=== PATIENT | male | born 1955 | race Caucasian/White ===

== ENCOUNTER → 2016-05-25 | Outpatient (CLI) | payer OTHER ==
[2015-10-07 00:37] VITALS: BP 149/76
[2016-05-25 16:28] LABS: BASOPHILS # (AUTO) 0.1 X10^3/uL (0.0-0.1); BASOPHILS % (AUTO) 0.9 % (0.2-1.0); EOSINOPHILS # (AUTO) 0.5 x10^3/uL (0.0-0.2); EOSINOPHILS % (AUTO) 4.3 % (0.9-2.9); HEMATOCRIT 34.6 % (42.0-54.0); LYMPHOCYTES # (AUTO) 3.2 X10^3/uL (1.3-2.9); LYMPHOCYTES % (AUTO) 29.6 % (21.0-51.0); MEAN CORPUSCULAR HEMOGLOBIN 29.8 pg (27.0-34.0); MEAN CORPUSCULAR HGB CONC 34.8 g/dL (33.0-35.0); MEAN CORPUSCULAR VOLUME 85.6 fL (80.0-100.0); MEAN PLATELET VOLUME 8.2 fL (7.4-11.0); MONOCYTES # (AUTO) 1.1 x10^3/uL (0.3-0.8); MONOCYTES % (AUTO) 9.9 % (0.0-13.0); NEUTROPHILS % (AUTO) 55.3 % (42.0-75.0); PLATELET COUNT 469 X10^3/uL (150.0-450.0); RED BLOOD COUNT 4.04 X10^6/uL (4.7-6.0); RED CELL DISTRIBUTION WIDTH 13.7 % (11.6-16.5); WHITE BLOOD COUNT 10.8 X10^3/uL (3.6-10.0)
[2016-05-25 16:29] LABS: BLOOD UREA NITROGEN 46 mg/dL (7-18); CALCIUM 8.6 mg/dL (8.5-10.1); CARBON DIOXIDE 26.3 mmol/L (21-32); CHLORIDE 103 mmol/L (98-107); CREATININE 3.41 mg/dL (0.70-1.30); GLUCOSE 97 mg/dL (65-99); SODIUM 141 mmol/L (136-145); eGFR BLACK RACES 24 (>60); eGFR NON BLACK RACES 20 (>60)
== END ==
LOC: LAB 15:53
PROVIDERS: ATTEND Internal Medicine
DX: R55 Syncope and collapse (principal)
CPT/HCPCS: 36415; 80048; 85025

== ENCOUNTER 2019-02-20 19:19 | Observation (INO) ==
[2019-02-20] MEDS ORDERED: NS 1000 ML 1,000 ML ONE (19:50)
[2019-02-20 20:32] VITALS: BMI 29.9
[2019-02-20] MEDS ORDERED: DESYREL PO SCH (22:00)
[2019-02-20] MEDS ORDERED: ELAVIL PO SCH (22:00)
[2019-02-20] MEDS ORDERED: FLOMAX PO SCH (22:00)
[2019-02-20] MEDS ORDERED: NS 1000 ML 1,000 ML IV SCH (22:00)
[2019-02-20] MEDS: CARAFATE PO SCH (22:57)
[2019-02-20] MEDS: PROTONIX TAB 40 MG PO SCH (22:57)
[2019-02-20] MEDS: NEURONTIN CAP 400 MG PO SCH (22:58)
[2019-02-20] MEDS: NS 1000 ML 1,000 ML IV SCH (23:00)
[2019-02-21 05:36] LABS: BASOPHILS % (AUTO) 0.4 % (0.2-1.0); EOSINOPHILS # (AUTO) 0.3 x10^3/uL (0.0-0.2); HEMATOCRIT 35.4 % (42.0-54.0); HEMOGLOBIN 12.3 g/dL (13.5-18.0); LYMPHOCYTES # (AUTO) 1.9 X10^3/uL (1.3-2.9); LYMPHOCYTES % (AUTO) 22.3 % (21.0-51.0); MEAN CORPUSCULAR HEMOGLOBIN 30.7 pg (27.0-34.0); MEAN CORPUSCULAR HGB CONC 34.9 g/dL (33.0-35.0); MEAN CORPUSCULAR VOLUME 87.9 fL (80.0-100.0); MEAN PLATELET VOLUME 8.6 fL (7.4-11.0); MONOCYTES # (AUTO) 0.7 x10^3/uL (0.3-0.8); MONOCYTES % (AUTO) 8.3 % (0.0-13.0); NEUTROPHILS # (AUTO) 5.6 x10^3/uL (2.2-4.8); PLATELET COUNT 296 X10^3/uL (150.0-450.0); RED BLOOD COUNT 4.02 X10^6/uL (4.7-6.0); RED CELL DISTRIBUTION WIDTH 13.5 % (11.6-16.5); WHITE BLOOD COUNT 8.5 X10^3/uL (3.6-10.0)
[2019-02-21 05:55] LABS: ALANINE AMINOTRANSFERASE 17 Units/L (12-78); ALBUMIN 2.8 g/dL (3.4-5.0); ALKALINE PHOSPHATASE 81 Units/L (46-116); ASPARTATE AMINO TRANSFERASE 16 Units/L (15-37); BLOOD UREA NITROGEN 23 mg/dL (7-18); CALCIUM 7.8 mg/dL (8.5-10.1); CARBON DIOXIDE 26.3 mmol/L (21-32); CHLORIDE 104 mmol/L (98-107); COR CA(FOR HYPOALB) 8.8 mg/dL (8.5-10.1); CREATININE 1.24 mg/dL (0.70-1.30); SODIUM 138 mmol/L (136-145); TOTAL PROTEIN 7.6 g/dL (6.4-8.2); eGFR NON BLACK RACES > 60 (>60)
[2019-02-21] MEDS ORDERED: NS 1000 ML 1,000 ML ONE (06:17)
[2019-02-21] MEDS ORDERED: GLUCOPHAGE ONE (06:17)
[2019-02-21] MEDS: NS 1000 ML 1,000 ML IV SCH (06:18)
[2019-02-21] MEDS: CARAFATE PO SCH (06:22)
[2019-02-21] MEDS ORDERED: GLUCOPHAGE PO SCH (07:00)
[2019-02-21] MEDS ORDERED: PROTONIX TAB 40 MG PO ONE (08:42)
[2019-02-21] MEDS ORDERED: ASPIRIN 81 MG CHEWTAB ONE (08:43)
[2019-02-21] MEDS: PROTONIX TAB 40 MG PO SCH (08:48)
[2019-02-21] MEDS: NEURONTIN CAP 400 MG PO SCH (08:48)
[2019-02-21] MEDS ORDERED: ASPIRIN EC 81 MG PO SCH (09:00)
[2019-02-21 10:20] VITALS: BP 127/80
== END 2019-02-21 10:42 | disposition home or self-care (01) ==
LOC: OBS
PROVIDERS: ADMIT Obstetrics & Gynecology Obstetrics; ATTEND Obstetrics & Gynecology Obstetrics
DX: E11.9 Type 2 diabetes mellitus without complications; I10 Essential (primary) hypertension; Z79.899 Other long term (current) drug therapy; R55 Syncope and collapse; K21.9 Gastro-esophageal reflux disease without esophagitis; I95.1 Orthostatic hypotension; R53.1 Weakness; I25.10 Atherosclerotic heart disease of native coronary artery without angina pectoris
CPT/HCPCS: 36415; 80053; 82533; 84425; 85025; A4222; G0378; J7030